=== PATIENT | female | born 1945 | race Caucasian/White ===

== ENCOUNTER → 2017-08-12 | Outpatient (CLI) | payer OTHER ==
--- NOTE | 2017-08-12 13:15 | RAD ---
DATE: 08/12/2017. EXAM: DIGITAL SCREEN BILAT W/CAD. HISTORY: Routine mammographic screening. COMPARISON: 08/06/2016. This study was interpreted with the benefit of Computerized Aided Detection (CAD). FINDINGS: The breast parenchyma is primarily fatty replaced. Breast parenchyma level density A.. There are no suspicious masses, microcalcifications or architectural distortion. Scattered and coarse calcifications are benign. BI-RADS CATEGORY: 2 BENIGN FINDING(S). RECOMMENDED FOLLOW-UP: 12M 12 MONTH FOLLOW-UP. PQRS compliance statement: Patient information was entered into a reminder system with a target due date 08/12/2018 for the next mammogram. Mammography is a sensitive method for finding small breast cancers, but it does not detect them all and is not a substitute for careful clinical examination. A negative mammogram does not negate a clinically suspicious finding and should not result in delay in biopsying a clinically suspicious abnormality. "Our facility is accredited by the [employer] Mammography Program."
== END | disposition home or self-care (01) ==
LOC: MAMMO 11:10
PROVIDERS: ATTEND Internal Medicine
DX: Z12.31 Encounter for screening mammogram for malignant neoplasm of breast (principal)
CPT/HCPCS: G0202; 77067

== ENCOUNTER → 2018-08-04 | Outpatient (CLI) | payer MEDICARE ==
--- NOTE | 2018-08-04 09:36 | RAD ---
Exam: Right Upper Quadrant Ultrasound 08/04/2018 9:00 AM Indication: Elevated liver enzymes. Technique: Multiple realtime grayscale sonographic images were obtained over the abdomen. Static images were submitted for interpretation. Comparisons: None Findings: Ultrasound evaluation of the right upper quadrant was performed. Static images are submitted to PACS. The pancreas is partially visualized. Visualized portions of the pancreas are unremarkable. Gallbladder is normal in appearance without evidence of wall thickening, stones, or sludge. Sonographic Toledo sign is negative. The liver measures 18.7 cm longitudinally consistent with mild hepatomegaly. Portions of the liver obscured. Common bile duct appears to be nondilated measuring approximately 4 mm in diameter. The liver is mildly diffusely echogenic suggesting some degree of hepatic steatosis. The right kidney is unremarkable in appearance measuring up 12.5 cm in length. The aorta and IVC are poorly visualized. IMPRESSION: 1. Exam somewhat limited secondary to body habitus 2. Mild hepatomegaly. Probable hepatic steatosis. Electronically signed by: Rasheed Tiwari MD (08/04/2018 9:32 AM) [id number]
== END | disposition home or self-care (01) ==
LOC: US 08:36
PROVIDERS: ATTEND Internal Medicine
DX: R16.0 Hepatomegaly, not elsewhere classified (principal)
CPT/HCPCS: 76705

== ENCOUNTER 2019-03-19 09:43 | Emergency (ER) | payer OTHER, MEDICARE ==
[~2019-03-19] VITALS: Ht 160 cm; Wt 123.4 kg
[2019-03-19 09:56] VITALS: BP 160/87
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
--- NOTE | 2019-03-19 10:50 | RAD ---
Three-view right knee dated 03/19/2019. No comparison available. Clinical data indication: Pain after injury. FINDINGS: 3 views right knee show normal bony alignment. No displaced fracture. Moderate tricompartmental hypertrophic change with small marginal osteophytes. Asymmetric medial joint space narrowing. No apparent joint effusion or loose body. IMPRESSION: 1. No acute radiographic abnormality. 2. Moderate tricompartmental DJD. Electronically signed by: Deven Ramos MD (03/19/2019 10:48 AM) [facility] [place]
--- NOTE | 2019-03-19 10:51 | RAD ---
Three-view right elbow dated 03/19/2019. No comparison available. Clinical data indication: Pain after injury. FINDINGS: Three-view right elbow show normal bony alignment. No displaced fracture. No acute osseous or articular abnormality. No fat pad elevation to suggest joint effusion. IMPRESSION: No acute findings. Electronically signed by: Deven Ramos MD (03/19/2019 10:48 AM) [facility] [place]
[2019-03-19] MEDS ORDERED: MELO7.5T29 PO (11:08)
[2019-03-19] MEDS ORDERED: ORPH-16 PO (11:08)
== END 2019-03-19 11:20 | disposition home or self-care (01) ==
LOC: ER 09:43
DX: S50.11XA Contusion of right forearm, initial encounter (principal); S80.01XA Contusion of right knee, initial encounter; S09.8XXA Other specified injuries of head, initial encounter; I10 Essential (primary) hypertension; M17.11 Unilateral primary osteoarthritis, right knee; M47.892 Other spondylosis, cervical region; V53.6XXA Passenger in pick-up truck or van injured in collision with car, pick-up truck or van in traffic accident, initial encounter; Y93.89 Activity, other specified; Y92.488 Other paved roadways as the place of occurrence of the external cause; Y99.8 Other external cause status
CPT/HCPCS: 70450; 72125; 73080; 73562; 99284-25